=== PATIENT | male | born 2000 | race Caucasian/White ===

== ENCOUNTER 2021-09-25 23:05 | Emergency (ER) | payer OTHER ==
[~2021-09-25 23:05] MED LIST: CARAFATE1 GM/10 ML PO; ZOFRAN ODT 4 MG4 MG PO
== END 2021-09-26 03:28 | disposition home or self-care (01) ==
LOC: ER1 23:05
DX: S83.004A Unspecified dislocation of right patella, initial encounter (principal); X50.9XXA Other and unspecified overexertion or strenuous movements or postures, initial encounter
CPT/HCPCS: 29515; 73564; 96372; 99283; J1885

== ENCOUNTER → 2021-10-26 | Outpatient (CLI) | payer OTHER | LOC: KOH-I 10-12 13:45 → EMI 14:04 | DX: S83.014A Lateral dislocation of right patella, initial encounter (principal); S83.241A Other tear of medial meniscus, current injury, right knee, initial encounter | CPT/HCPCS: 73721 ==